=== PATIENT | male | born 1975 | race Caucasian/White ===

== ENCOUNTER → 2017-10-25 | Outpatient (CLI) | payer OTHER ==
[~2017-10-25] MED LIST: ASPIR 8181 MG PO; CARVEDILOL12.5 MG PO; COQ1050 MG PO; KEFLEX500 MG PO; LISINOPRIL5 MG PO; MYFORTIC180 MG PO; OMEGA-3 + VITA200 ML PO; PEPCID20 MG PO; PROGRAF1 MG PO; UNICOMPLEX M TA1 TA1 PO; VITAMIN D2000 UNIT PO; ZYRTEC10 MG PO
== END ==
LOC: M.CT 06:42
DX: K40.21 Bilateral inguinal hernia, without obstruction or gangrene, recurrent (principal); K57.32 Diverticulitis of large intestine without perforation or abscess without bleeding; Q61.3 Polycystic kidney, unspecified; Z94.0 Kidney transplant status

== ENCOUNTER → 2017-11-11 | Outpatient (CLI) | payer OTHER ==
[2017-11-11 13:59] LABS: CALCIUM 9.8 mg/dL (8.5-10.1); CREATININE 1.1 mg/dL (0.6-1.3); POTASSIUM 4.1 mmol/L (3.5-5.1)
== END ==
LOC: M.LAB 01:30
PROVIDERS: Student in an Organized Health Care Education/Training Program
DX: Z01.812 Encounter for preprocedural laboratory examination (principal)

== ENCOUNTER → 2019-06-26 | Outpatient (CLI) | payer OTHER ==
[2019-06-26 10:47] LABS: HEMATOCRIT 46.8 % (42.0-52.0); HEMOGLOBIN 16.3 gm/dL (14.0-18.0); MCH 31.6 pg (26.0-34.0); MCHC 34.8 g/dL (28.0-37.0); MCV 90.8 fL (80.0-100.0); MPV 8.4 fl. (7.2-11.1); NUCLEATED RBCS 0 /100WBC; PLATELET COUNT* 231 thou/uL (150-400); RBC 5.15 mil/uL (4.50-6.00); RDW-CV 13.5 % (10.5-14.5); WBC 5.8 thou/uL (4.0-11.0)
[2019-06-26 10:52] LABS: URINE BILIRUBIN NEGATIVE (Negative); URINE BLOOD TRACE (Negative); URINE CLARITY CLEAR; URINE COLOR YELLOW; URINE GLUCOSE-RANDOM NEGATIVE (Negative); URINE KETONES NEGATIVE (Negative); URINE LEUKOCYTES-REFLEX NEGATIVE (Negative); URINE NITRITE-REFLEX NEGATIVE (Negative); URINE PROTEIN NEGATIVE (Negative); URINE SPECIFIC GRAVITY 1.025 (1.005-1.030); URINE UROBILINOGEN 0.2 E.U./dl (0.2-1.0)
[2019-06-26 10:58] LABS: ALBUMIN 3.9 g/dL (3.4-5.0); ALKALINE PHOSPHATASE 61 U/L (46-116); ANION GAP 7 mmol/L (7-16); BUN 17 mg/dL (7-18); CALCIUM 9.2 mg/dL (8.5-10.1); CHLORIDE 105 mmol/L (98-107); CHOLESTEROL 209 mg/dL (<200); CO2 29 mmol/L (21-32); CREATININE 1.2 mg/dL (0.6-1.3); GLUCOSE 104 mg/dL (70-99); HDL CHOLESTEROL 40 mg/dL (>40); LDL CHOLESTEROL 152 mg/dL (<100); MAGNESIUM 1.5 mg/dL (1.8-2.4); PHOSPHORUS* 2.9 mg/dL (2.5-4.9); POTASSIUM 4.6 mmol/L (3.5-5.1); SGOT 12 U/L (15-37); SGPT 28 U/L (30-65); SODIUM 141 mmol/L (136-145); TC:HDL 5.2 Ratio (Not establshd); TOTAL BILIRUBIN 0.5 mg/dL (<0.1-1.0); TOTAL PROTEIN 7.3 g/dL (6.4-8.2); TRIGLYCERIDE 89 mg/dL (<150); URIC ACID* 3.8 mg/dL (2.6-7.2); VLDL 18 mg/dL (<40)
[2019-06-26 10:59] LABS: SERUM ASSESSMENT Clear
[2019-06-26 11:44] LABS: ABSOLUTE BASOPHILS 0.1 thou/uL (0.0-0.2); ABSOLUTE EOSINOPHILS 1.3 thou/uL (0.0-0.7); ABSOLUTE MONOCYTES 0.6 thou/uL (0.0-1.2); ABSOLUTE NEUTROPHILS 1.7 thou/uL (1.6-8.1)
[2019-06-26 11:46] LABS: PLATELET ESTIMATE ADEQUATE
== END ==
LOC: M.LAB 09:30
PROVIDERS: Internal Medicine Cardiovascular Disease
DX: I12.0 Hypertensive chronic kidney disease with stage 5 chronic kidney disease or end stage renal disease (principal); N18.6 End stage renal disease; D89.9 Disorder involving the immune mechanism, unspecified; Z94.0 Kidney transplant status

== ENCOUNTER → 2020-01-22 | Outpatient (CLI) | payer OTHER ==
[~2020-01-22] MED LIST changes: +CIPROFLOXACIN500 M1 PO; +FLAGYL500 M1 PO; +ZOFRAN ODT4 MG PO
[2020-01-22 07:33] LABS: HEMOGLOBIN 16.4 gm/dL (14.0-18.0); MCH 31.4 pg (26.0-34.0); MCHC 34.8 g/dL (28.0-37.0); MCV 90.4 fL (80.0-100.0); MPV 8.4 fl. (7.2-11.1); NUCLEATED RBCS 0 /100WBC; PLATELET COUNT* 212 thou/uL (150-400); RBC 5.21 mil/uL (4.50-6.00); WBC 5.7 thou/uL (4.0-11.0)
[2020-01-22 07:44] LABS: CALCIUM 8.5 mg/dL (8.5-10.1); CREATININE 1.4 mg/dL (0.6-1.3); MAGNESIUM 1.7 mg/dL (1.8-2.4); PHOSPHORUS* 3.4 mg/dL (2.5-4.9); POTASSIUM 4.5 mmol/L (3.5-5.1); TOTAL BILIRUBIN 0.5 mg/dL (<0.1-1.0); TOTAL PROTEIN 7.1 g/dL (6.4-8.2); URIC ACID* 4.5 mg/dL (2.6-7.2)
[2020-01-22 08:08] LABS: URINE BILIRUBIN NEGATIVE (Negative); URINE BLOOD NEGATIVE (Negative); URINE CLARITY CLEAR; URINE COLOR YELLOW; URINE GLUCOSE-RANDOM NEGATIVE (Negative); URINE KETONES NEGATIVE (Negative); URINE LEUKOCYTES-REFLEX NEGATIVE (Negative); URINE NITRITE-REFLEX NEGATIVE (Negative); URINE PROTEIN NEGATIVE (Negative); URINE SPECIFIC GRAVITY 1.025 (1.005-1.030); URINE UROBILINOGEN 0.2 E.U./dl (0.2-1.0)
[2020-01-22 08:40] LABS: ABSOLUTE EOSINOPHILS 0.7 thou/uL (0.0-0.7); ABSOLUTE LYMPHOCYTES 2.3 thou/uL (0.8-5.3); ABSOLUTE NEUTROPHILS 2.6 thou/uL (1.6-8.1)
[2020-01-22 08:41] LABS: PLATELET ESTIMATE ADEQUATE
== END ==
LOC: M.LAB 07:05 → EDSTATUS 12:16
DX: Z51.81 Encounter for therapeutic drug level monitoring (principal); Z94.0 Kidney transplant status; Z79.899 Other long term (current) drug therapy

== ENCOUNTER 2020-03-08 15:55 | Emergency (ER) | payer OTHER ==
[~2020-03-08] VITALS: Ht 177.8 cm; Wt 86.2 kg
[~2020-03-08 15:55] MED LIST changes: -CIPROFLOXACIN500 M1 PO; -FLAGYL500 M1 PO; -ZOFRAN ODT4 MG PO
[2020-03-08 16:26] LABS: ABSOLUTE EOSINOPHILS 0.4 thou/uL (0.0-0.7); ABSOLUTE LYMPHOCYTES 1.2 thou/uL (0.8-5.3); ABSOLUTE MONOCYTES 1.3 thou/uL (0.0-1.2); ABSOLUTE NEUTROPHILS 6.1 thou/uL (1.6-8.1); BASOPHILS 0.4 %; EOSINOPHILS 3.9 %; HEMOGLOBIN 14.9 gm/dL (14.0-18.0); LYMPHOCYTES 13.5 %; MCH 31.6 pg (26.0-34.0); MCHC 34.6 g/dL (28.0-37.0); MCV 91.3 fL (80.0-100.0); MONOCYTES 14.8 %; MPV 8.1 fl. (7.2-11.1); NUCLEATED RBCS 0 /100WBC; PLATELET COUNT* 196 thou/uL (150-400); POLYS 67.4 %; RBC 4.71 mil/uL (4.50-6.00); WBC 9.1 thou/uL (4.0-11.0)
[2020-03-08 16:38] LABS: CALCIUM 9.3 mg/dL (8.5-10.1); CREATININE 1.4 mg/dL (0.6-1.3); POTASSIUM 4.2 mmol/L (3.5-5.1)
[2020-03-08 16:43] LABS: ALBUMIN 3.9 g/dL (3.4-5.0); TOTAL BILIRUBIN 0.7 mg/dL (<0.1-1.0); TOTAL PROTEIN 7.3 g/dL (6.4-8.2)
[2020-03-08 17:00] LABS: URINE BILIRUBIN NEGATIVE (Negative); URINE BLOOD 1+ (Negative); URINE CLARITY CLEAR; URINE COLOR YELLOW; URINE GLUCOSE-RANDOM NEGATIVE (Negative); URINE KETONES NEGATIVE (Negative); URINE LEUKOCYTES-REFLEX NEGATIVE (Negative); URINE NITRITE-REFLEX NEGATIVE (Negative); URINE PROTEIN NEGATIVE (Negative); URINE SPECIFIC GRAVITY 1.025 (1.005-1.030); URINE UROBILINOGEN 0.2 E.U./dl (0.2-1.0)
[2020-03-08 17:08] LABS: HYALINE CASTS 0-3 Few /LPF (None Seen); SQUAMOUS NONE SEEN /LPF (0-3)
[2020-03-08 17:09] LABS: URINE RBC 0-2 Rare /HPF (0-2)
[2020-03-08 17:10] LABS: CRYSTALS None Seen /LPF (None Seen); URINE WBC-REFLEX 0-5 Rare /HPF (0-5)
[2020-03-08 17:12] LABS: BACTERIA-REFLEX None Seen /HPF (None Seen); MUCUS None Seen strn/LPF (None Seen)
[2020-03-08] MEDS ORDERED: ZOFRAN ODT4 MG PO (20:13)
[2020-03-08] MEDS ORDERED: FLAGYL500 M1 PO (20:13)
[2020-03-08] MEDS ORDERED: CIPROFLOXACIN500 M1 PO (20:13)
[2020-03-08 20:29] VITALS: BP 121/70
== END 2020-03-08 20:30 | disposition home or self-care (01) ==
LOC: M.ERS 15:55
PROVIDERS: Personal Emergency Response Attendant
DX: S70.02XA Contusion of left hip, initial encounter (principal); K52.9 Noninfective gastroenteritis and colitis, unspecified; I10 Essential (primary) hypertension; I48.91 Unspecified atrial fibrillation; Z91.041 Radiographic dye allergy status; Z88.1 Allergy status to other antibiotic agents; V89.2XXA Person injured in unspecified motor-vehicle accident, traffic, initial encounter; Y93.89 Activity, other specified; Y92.89 Other specified places as the place of occurrence of the external cause; Y99.8 Other external cause status

== ENCOUNTER → 2020-08-17 | Outpatient (CLI) | payer OTHER ==
[~2020-08-17] MED LIST changes: +CIPROFLOXACIN500 M1 PO; +FLAGYL500 M1 PO; +ZOFRAN ODT4 MG PO
== END ==
LOC: M.LAB 07:44
PROVIDERS: ATTEND Internal Medicine Gastroenterology
DX: Z01.812 Encounter for preprocedural laboratory examination (principal); Z20.822 Contact with and (suspected) exposure to COVID-19; K57.92 Diverticulitis of intestine, part unspecified, without perforation or abscess without bleeding

== ENCOUNTER → 2020-11-25 | Outpatient (CLI) | payer OTHER | LOC: M.CT 07:17 | PROVIDERS: ATTEND Internal Medicine Cardiovascular Disease | DX: Z13.6 Encounter for screening for cardiovascular disorders (principal); I25.10 Atherosclerotic heart disease of native coronary artery without angina pectoris ==

== ENCOUNTER → 2020-12-23 | Outpatient (CLI) | payer OTHER | LOC: M.CT 07:30 | PROVIDERS: ATTEND Family Medicine | DX: M41.86 Other forms of scoliosis, lumbar region (principal); M47.814 Spondylosis without myelopathy or radiculopathy, thoracic region; N28.1 Cyst of kidney, acquired; J98.11 Atelectasis; K57.30 Diverticulosis of large intestine without perforation or abscess without bleeding ==

== ENCOUNTER → 2021-01-04 | Outpatient (CLI) | payer OTHER ==
[2021-01-04 09:01] LABS: CHOLESTEROL 153 mg/dL (<200); HDL CHOLESTEROL 42 mg/dL (>40); LDL CHOLESTEROL 90 mg/dL (<100); TC:HDL 3.6 Ratio (Not establshd); TRIGLYCERIDE 105 mg/dL (<150); VLDL 21 mg/dL (<40)
[2021-01-04 09:02] LABS: SERUM ASSESSMENT Clear
== END ==
LOC: M.LAB 08:23
PROVIDERS: ATTEND Internal Medicine Cardiovascular Disease
DX: N18.6 End stage renal disease (principal); R93.1 Abnormal findings on diagnostic imaging of heart and coronary circulation; Z94.0 Kidney transplant status

== ENCOUNTER → 2021-05-05 | Outpatient (CLI) | payer OTHER ==
[2021-05-05 09:26] LABS: URINE BILIRUBIN NEGATIVE (Negative); URINE BLOOD TRACE (Negative); URINE CLARITY CLEAR; URINE COLOR YELLOW; URINE GLUCOSE-RANDOM NEGATIVE (Negative); URINE KETONES NEGATIVE (Negative); URINE LEUKOCYTES NEGATIVE (Negative); URINE LEUKOCYTES-REFLEX NEGATIVE (Negative); URINE NITRITE NEGATIVE (Negative); URINE NITRITE-REFLEX NEGATIVE (Negative); URINE PROTEIN NEGATIVE (Negative); URINE SPECIFIC GRAVITY 1.025 (1.005-1.030); URINE UROBILINOGEN 0.2 E.U./dl (0.2-1.0)
[2021-05-05 09:32] LABS: HEMATOCRIT 47.1 % (42.0-52.0); MCHC 33.9 g/dL (28.0-37.0); MCV 91.4 fL (80.0-100.0); MPV 8.4 fl. (7.2-11.1); NUCLEATED RBCS 0 /100WBC; PLATELET COUNT* 219 thou/uL (150-400); RBC 5.15 mil/uL (4.50-6.00); RDW-CV 13.3 % (10.5-14.5); WBC 4.7 thou/uL (4.0-11.0)
[2021-05-05 09:44] LABS: ANION GAP 10 mmol/L (7-16); CHLORIDE 106 mmol/L (98-107); CO2 27 mmol/L (21-32); GLUCOSE 105 mg/dL (70-99); POTASSIUM 4.4 mmol/L (3.5-5.1); SODIUM 143 mmol/L (136-145)
[2021-05-05 10:13] LABS: ALBUMIN 3.7 g/dL (3.4-5.0); ALKALINE PHOSPHATASE 55 U/L (46-116); BUN 21 mg/dL (7-18); CALCIUM 8.9 mg/dL (8.5-10.1); CHOLESTEROL 157 mg/dL (<200); CREATININE 1.4 mg/dL (0.6-1.3); HDL CHOLESTEROL 44 mg/dL (>40); LDL CHOLESTEROL 99 mg/dL (<100); MAGNESIUM 1.8 mg/dL (1.8-2.4); PHOSPHORUS* 2.7 mg/dL (2.5-4.9); SGOT 17 U/L (15-37); SGPT 27 U/L (30-65); TC:HDL 3.6 Ratio (Not establshd); TOTAL BILIRUBIN 0.4 mg/dL (<0.1-1.0); TRIGLYCERIDE 71 mg/dL (<150); URIC ACID* 4.7 mg/dL (2.6-7.2); VLDL 14 mg/dL (<40)
[2021-05-05 10:15] LABS: SERUM ASSESSMENT Clear
[2021-05-05 11:17] LABS: ABSOLUTE BASOPHILS 0.1 thou/uL (0.0-0.2); ABSOLUTE EOSINOPHILS 0.4 thou/uL (0.0-0.7); ABSOLUTE LYMPHOCYTES 1.8 thou/uL (0.8-5.3); ABSOLUTE MONOCYTES 0.8 thou/uL (0.0-1.2); ABSOLUTE NEUTROPHILS 1.7 thou/uL (1.6-8.1); PLATELET ESTIMATE ADEQUATE
[2021-05-06 05:07] LABS: GLYCOHEMOGLOBIN (HGB A1C) 5.7 % (4.8-5.6)
== END ==
LOC: M.LAB 08:46
PROVIDERS: ATTEND Internal Medicine Cardiovascular Disease
DX: Z51.81 Encounter for therapeutic drug level monitoring (principal); Z13.220 Encounter for screening for lipoid disorders; Z13.29 Encounter for screening for other suspected endocrine disorder; N17.9 Acute kidney failure, unspecified; K57.30 Diverticulosis of large intestine without perforation or abscess without bleeding; I48.0 Paroxysmal atrial fibrillation; I25.10 Atherosclerotic heart disease of native coronary artery without angina pectoris; R93.1 Abnormal findings on diagnostic imaging of heart and coronary circulation; I12.0 Hypertensive chronic kidney disease with stage 5 chronic kidney disease or end stage renal disease; N18.5 Chronic kidney disease, stage 5; E78.2 Mixed hyperlipidemia; Z84.0 Family history of diseases of the skin and subcutaneous tissue; Z79.899 Other long term (current) drug therapy

== ENCOUNTER 2021-07-22 14:13 | Emergency (ER) | payer OTHER ==
[~2021-07-22] VITALS: Ht 177.8 cm; Wt 88.5 kg
[2021-07-22 14:53] LABS: HEMATOCRIT 44.5 % (42.0-52.0); MCH 30.7 pg (26.0-34.0); MCHC 33.8 g/dL (28.0-37.0); MCV 90.7 fL (80.0-100.0); MPV 8.2 fl. (7.2-11.1); NUCLEATED RBCS 0 /100WBC; PLATELET COUNT* 175 thou/uL (150-400); RBC 4.91 mil/uL (4.50-6.00); RDW-CV 13.6 % (10.5-14.5)
[2021-07-22 15:05] LABS: CALCIUM 8.8 mg/dL (8.5-10.1); CREATININE 1.4 mg/dL (0.6-1.3); POTASSIUM 3.8 mmol/L (3.5-5.1)
[2021-07-22 15:09] LABS: ALBUMIN 3.7 g/dL (3.4-5.0); TOTAL BILIRUBIN 0.4 mg/dL (<0.1-1.0); TOTAL PROTEIN 6.9 g/dL (6.4-8.2)
[2021-07-22] MEDS ORDERED: HYDROCODON-ACE1 EAC7 PO (15:20)
[2021-07-22 15:27] VITALS: BP 145/85
[2021-07-22 15:27] LABS: ABSOLUTE BASOPHILS 0.1 thou/uL (0.0-0.2); ABSOLUTE EOSINOPHILS 0.1 thou/uL (0.0-0.7); ABSOLUTE LYMPHOCYTES 0.6 thou/uL (0.8-5.3); ABSOLUTE MONOCYTES 0.8 thou/uL (0.0-1.2); ABSOLUTE NEUTROPHILS 2.4 thou/uL (1.6-8.1)
[2021-07-22 15:28] LABS: PLATELET ESTIMATE ADEQUATE
== END 2021-07-22 15:27 | disposition home or self-care (01) ==
LOC: M.ERS 14:13
PROVIDERS: Family Medicine
DX: R10.30 Lower abdominal pain, unspecified (principal); R11.2 Nausea with vomiting, unspecified; Z94.0 Kidney transplant status; Z79.899 Other long term (current) drug therapy; Z79.82 Long term (current) use of aspirin; Z91.041 Radiographic dye allergy status; Z88.1 Allergy status to other antibiotic agents

== ENCOUNTER → 2021-08-23 | Outpatient (CLI) | payer OTHER ==
[~2021-08-23] MED LIST changes: +HYDROCODON-ACE1 EAC7 PO
[2021-08-23 07:10] LABS: ABSOLUTE BASOPHILS 0.1 thou/uL (0.0-0.2); ABSOLUTE EOSINOPHILS 0.6 thou/uL (0.0-0.7); ABSOLUTE LYMPHOCYTES 2.4 thou/uL (0.8-5.3); ABSOLUTE MONOCYTES 0.9 thou/uL (0.0-1.2); ABSOLUTE NEUTROPHILS 2.1 thou/uL (1.6-8.1); BASOPHILS 1.2 %; HEMATOCRIT 46.4 % (42.0-52.0); HEMOGLOBIN 15.6 gm/dL (14.0-18.0); LYMPHOCYTES 38.9 %; MCH 30.5 pg (26.0-34.0); MCHC 33.7 g/dL (28.0-37.0); MCV 90.4 fL (80.0-100.0); MONOCYTES 15.4 %; MPV 7.9 fl. (7.2-11.1); NUCLEATED RBCS 0 /100WBC; PLATELET COUNT* 201 thou/uL (150-400); POLYS 34.5 %; RBC 5.13 mil/uL (4.50-6.00); RDW-CV 13.4 % (10.5-14.5); WBC 6.1 thou/uL (4.0-11.0)
[2021-08-23 07:15] LABS: URINE BILIRUBIN NEGATIVE (Negative); URINE BLOOD TRACE (Negative); URINE CLARITY CLEAR; URINE COLOR YELLOW; URINE GLUCOSE-RANDOM NEGATIVE (Negative); URINE KETONES NEGATIVE (Negative); URINE LEUKOCYTES-REFLEX NEGATIVE (Negative); URINE NITRITE-REFLEX NEGATIVE (Negative); URINE PROTEIN NEGATIVE (Negative); URINE SPECIFIC GRAVITY 1.025 (1.005-1.030); URINE UROBILINOGEN 0.2 E.U./dl (0.2-1.0)
[2021-08-23 07:34] LABS: ALBUMIN 3.9 g/dL (3.4-5.0); CALCIUM 9.5 mg/dL (8.5-10.1); CREATININE 1.2 mg/dL (0.6-1.3); MAGNESIUM 1.7 mg/dL (1.8-2.4); POTASSIUM 3.8 mmol/L (3.5-5.1); TOTAL BILIRUBIN 0.6 mg/dL (<0.1-1.0); URIC ACID* 5.1 mg/dL (2.6-7.2)
== END ==
LOC: M.LAB 06:42
PROVIDERS: ATTEND Internal Medicine
DX: D84.9 Immunodeficiency, unspecified (principal); Z79.899 Other long term (current) drug therapy; Z94.0 Kidney transplant status